=== PATIENT | male | born 1995 | race Caucasian/White ===

== ENCOUNTER 2017-05-21 18:10 | Emergency (ER) | payer OTHER ==
[2017-05-21 18:19] VITALS: RESP 16
--- NOTE | 2017-05-21 18:25 | CPEKG ---
Heart Rate: 54 RR Interval: 1111 P-R Interval: 156 QRSD Interval: 100 QT Interval: 424 QTC Interval: 402 P [place]: 43 QRS [place]: 78 T Wave [place]: 1 EKG Severity - NORMAL ECG - EKG Impression: SINUS RHYTHM Electronically Signed By: Rayna Rueda 21-May-2017 20:57:49
--- NOTE | 2017-05-21 18:25 | CPEKG ---
Heart Rate: 54 RR Interval: 1111 P-R Interval: 156 QRSD Interval: 100 QT Interval: 424 QTC Interval: 402 P [place]: 43 QRS [place]: 78 T Wave [place]: 1 EKG Severity - NORMAL ECG - EKG Impression: SINUS RHYTHM Electronically Signed By: Rayna Rueda 21-May-2017 20:57:49
--- NOTE | 2017-05-21 18:29 | EDPHY ---
H & P Smoking Status: Current every day smoker Time Seen by Provider: 05/21/17 18:23 HPI/ROS: CHIEF COMPLAINT: Seizure versus syncope HISTORY OF PRESENT ILLNESS: 22-year-old male presents to the emergency department by ambulance after having a witnessed seizure by his girlfriend. The patient states that he went to the bathroom and when he urinated he noted some dysuria as well as a "milky discharge". He states that the next thing he knew, he was on the ground. His girlfriend at bedside states that he was "shaking on the ground ". Per EMS however he was not confused. He had no postictal state. No chest pain or difficulty breathing. No abdominal pain. He was smoking marijuana this evening. He denies any other substance abuse. He denies abdominal pain, nausea or vomiting. No history of seizure disorder. No history of syncopal episodes. The patient's that he is not concerned about a sexually transmitted infection. He is monogamous with his partner who has no symptoms. He denies a headache. He was not incontinent of urine. REVIEW OF SYSTEMS: Constitutional: No fever, no chills. Eyes: No double or blurry vision. ENT: No sore throat. Respiratory: No cough, no shortness of breath. Cardiac: No chest pain. Gastrointestinal: No abdominal pain, vomiting or diarrhea. Genitourinary: No dysuria. Musculoskeletal: No neck or back pain. Skin: No rashes. Neurological: No headache. (Komal Otto) Past Medical/Surgical History: marijuana (Komal Otto) Social History: Single (Komal Otto) Physical Exam: General Appearance: Alert, no distress. Mentating normally and answering questions appropriately. Eyes: Pupils equal and round. Extraocular motions are all intact. ENT: Mouth: Mucous membranes moist. No tongue abrasion or laceration. Respiratory: No wheezing, rhonchi, or rales, lungs are clear to auscultation. Cardiovascular: Regular rate and rhythm. Gastrointestinal: Abdomen is soft and nontender, no masses, no rebound or guarding, bowel sounds normal. Neurological: Alert and oriented x 3, cranial nerves II through XII grossly intact Skin: Warm and dry, no rashes. Musculoskeletal: Nontender to palpate along the cervical, thoracic or lumbar spine. Neck is supple. Extremities: Full range of motion and no peripheral edema. Psychiatric: Patient is oriented X 3, there is no agitation. (Komal Otto) Constitutional: Initial Vital Signs Temperature (C) 36.8 C 05/21/17 18:10 Heart Rate 97 05/21/17 18:10 Respiratory Rate 16 05/21/17 18:10 Blood Pressure 137/65 H 05/21/17 18:10 O2 Sat (%) 97 05/21/17 18:10 O2 Delivery Mode Room Air Allergies/Adverse Reactions: No Known Allergies Allergy (Unverified 05/21/17 18:19) Home Medications: Medication Instructions Recorded NK [No Known Home Meds] 05/21/17 Medical Decision Making - Diagnostics EKG Interpretation: EKG reveals normal sinus rhythm. This was reviewed by Dr. Rayna Rueda. See interpretation in trace master. (Komal Otto) ED Course/Re-evaluation: The patient was evaluated and managed by the physician's visitor services assistant. My cosignature indicates that I reviewed the chart and I agree with the findings and plan of care as documented. I am the secondary supervising physician. ( Rayna Rueda) The case was discussed with Dr. Rayna Rueda, secondary supervising physician , who did not directly evaluate the patient but agrees with treatment and plan. I doubt this patient had a seizure. His CO2 was normal. He was not postictal. He did not bite his tongue. He was not incontinent of urine. I do not think CT imaging of his brain is indicated. He has no headache. No signs of trauma to his head. No reported trauma. Laboratory studies including urinalysis was all within normal limits. The patient is not concerned about sexually transmitted infection. He declined testing. His girlfriend is at bedside. I encouraged close follow-up with his primary care provider. He should return if he has any syncopal episodes or any other concerns. I also discouraged from continuing to smoke marijuana. (Komal Otto) Differential Diagnosis: Syncope including but not limited to vasovagal syncope, arrhythmia, dehydration , and blood loss. (Komal Otto) - Data Points Laboratory Results: Laboratory Results 05/21/17 18:15 05/21/17 18:15 05/21/17 05/21/17 05/21/17 19:43 18:15 18:15 WBC 11.64 10^3/uL H 10^3/uL (3.80-9.50) RBC 5.25 10^6/uL 10^6/uL (4.40-6.38) Hgb 15.8 g/dL g/dL (13.7-17.5) Hct 46.3 % % (40.0-51.0) MCV 88.2 fL fL (81.5-99.8) MCH 30.1 pg pg (27.9-34.1) MCHC 34.1 g/dL g/dL (32.4-36.7) RDW 12.6 % % (11.5-15.2) Plt Count 223 10^3/uL 10^3/uL (150-400) MPV 10.6 fL fL (8.7-11.7) Neut % (Auto) 55.9 % % (39.3-74.2) Lymph % (Auto) 36.7 % % (15.0-45.0) [place] % (Auto) 6.3 % % (4.5-13.0) Eos % (Auto) 0.4 % L % (0.6-7.6) Baso % (Auto) 0.4 % % (0.3-1.7) Nucleat RBC Rel Count 0.0 % % (0.0-0.2) Absolute Neuts (auto) 6.51 10^3/uL H 10^3/uL (1.70-6.50) Absolute Lymphs (auto) 4.27 10^3/uL H 10^3/uL (1.00-3.00) Absolute Monos (auto) 0.73 10^3/uL 10^3/uL (0.30-0.80) Absolute Eos (auto) 0.05 10^3/uL 10^3/uL (0.03-0.40) Absolute Basos (auto) 0.05 10^3/uL 10^3/uL (0.02-0.10) Absolute Nucleated RBC 0.00 10^3/uL 10^3/uL (0-0.01) Immature Gran % 0.3 % % (0.0-1.1) Immature Gran # 0.03 10^3/uL 10^3/uL (0.00-0.10) Sodium 144 mEq/L mEq/L (134-144) Potassium 3.6 mEq/L mEq/L (3.5-5.2) Chloride 100 mEq/L mEq/L (97-110) Carbon Dioxide 26 mEq/l mEq/l (22-31) Anion Gap 18 mEq/L H mEq/L (8-16) BUN 16 mg/dL mg/dL (7-23) Creatinine 1.1 mg/dL mg/dL (0.7-1.3) Estimated GFR > 60 Glucose 105 mg/dL H mg/dL (70-100) Calcium 10.0 mg/dL mg/dL (8.5-10.4) Urine Color YELLOW Urine Appearance HAZY Urine pH 6.0 (5.0-7.5) Ur Specific [place] 1.017 (1.002-1.030) Urine Protein NEGATIVE (NEGATIVE) Urine Ketones NEGATIVE (NEGATIVE) Urine Blood NEGATIVE (NEGATIVE) Urine Nitrate NEGATIVE (NEGATIVE) Urine Bilirubin NEGATIVE (NEGATIVE) Urine Urobilinogen NEGATIVE EU EU (0.2-1.0) Ur Leukocyte Esterase NEGATIVE (NEGATIVE) Urine RBC NONE SEEN /hpf /hpf (0-3) Urine WBC NONE SEEN /hpf /hpf (0-3) Ur Epithelial Cells NONE SEEN /lpf /lpf (NONE-1+) Amorphous Sediment PRESENT /hpf /hpf (NONE-1+) Urine Mucus TRACE /lpf /lpf (NONE-1+) Urine Glucose NEGATIVE (NEGATIVE) Medications Given: Discontinued Medications Sodium Chloride (Ns) 1,000 mls @ 0 mls/hr IV ONCE ONE PRN Reason: Wide Open Stop: 05/21/17 18:51 Last Admin: 05/21/17 19:05 Dose: 1,000 mls Departure - Departure Disposition: Home, Routine, Self-Care Clinical Impression: Syncope Qualifiers: Syncope type: unspecified Qualified Code(s): R55 - Syncope and collapse Condition: Good Instructions: Syncope (ED) Additional Instructions: Diet and activity as tolerated. Return to the emergency department if you develop recurring syncope or any other concerns. Referrals: Patient,NotPresent [Unknown] - As per Instructions
[2017-05-21 18:36] LABS: PLATELET COUNT 223 10^3/uL (150-400)
[2017-05-21] MEDS ORDERED: NS 1,000 ML IV ONE (18:50)
[2017-05-21 20:43] VITALS: BP 127/78; PULSE 67; TEMP 98.1; O2SAT 94
== END 2017-05-21 20:43 | disposition home or self-care (01) ==
DX: R55 Syncope and collapse (principal); F17.200 Nicotine dependence, unspecified, uncomplicated